=== PATIENT | female | born 1960 | race Caucasian/White ===

== ENCOUNTER 2021-02-17 02:41 | Emergency (ER) | payer SELFPAY ==
[2021-02-17] MEDS ORDERED: OXYMETAZOLINE HCL 100 SPRAYS BOTTLE NAS STA (02:51)
--- NOTE | 2021-02-17 03:11 | ED Physician Documentation ---
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 patient states she always needs nasal packing to get it to resolve. Review of Systems Nose: reports: Epistaxis PD PAST MEDICAL HISTORY - Past Medical History Past Medical History: Yes Cardiovascular: Hypertension, High cholesterol - Past Surgical History Past Surgical History: Yes Ortho: Shoulder arthroplasty, Arthroscopic surgery - Present Medications Home Medications: Ambulatory Orders Medication Instructions Recorded Confirmed Losartan Potassium 25 mg PO DAILY 02/17/21 02/17/21 Warfarin [Coumadin] PO DAILY 02/17/21 - Allergies Allergies/Adverse Reactions: Allergies Allergy/AdvReac Type Severity Reaction Status Date / Time Sulfa (Sulfonamide Allergy Anaphylaxis Verified 02/17/21 02:55 Antibiotics) - Social History Does the pt smoke?: No Smoking Status: Never smoker Does the pt drink ETOH?: Yes Does the pt have substance abuse?: No - Immunizations Immunizations are current?: Yes PD ED PE NORMAL - Vitals Vital signs reviewed: Yes - General General: Alert and oriented X 3, No acute distress, Well developed/nourished - HEENT HEENT: Atraumatic, PERRL, EOMI, Moist mucous membranes, Pharynx benign, Other (R naris active epistaxis, resolving with rhinorocket) Results - Vitals Vitals: Oxygen O2 Source Room air Procedures - Epistaxis Site: Right, Anterior Preparation: Afrin, Clamp / pressure applied Treatment: Packing inserted, Other (bacitracin used as lubricant coating) Other: Observed - no bleeding, Pt tolerated well, O2 sat WNL, Referred to ENT PD MEDICAL DECISION MAKING - ED course ED course: 60yF p/w epistaxis, resolving s/p afrin, direct pressure and then rhinorocket placement in R naris. return precautions given. plan to f/u in 72h for removal. ENT referral provided. Departure - Departure Disposition: 01 Home, Self Care Clinical Impression: Epistaxis Condition: Good Instructions: ED Nosebleed Follow-Up: Rory Hammonds DO [Physician No Access] - Comments: You are seen in the emergency department for nosebleed. Packing was placed in the right nostril that needs to be removed in 72 hours. Please follow up with urgent care, walk in clinic, or come back here. You should also follow up with an ear nose and throat doctor, since this keeps happening. (See referral). Return if you have recurrent bleeding, new or worsening symptoms or other concerns. Discharge Date/Time: 02/17/21 03:59
[2021-02-17 03:35] VITALS: BP 180/96
== END 2021-02-17 03:59 | disposition home or self-care (01) ==
LOC: ED 02:41
DX: R04.0 Epistaxis (principal); Z79.01 Long term (current) use of anticoagulants; I10 Essential (primary) hypertension
CPT/HCPCS: 30901; 99281; 99282; A9270

== ENCOUNTER 2021-02-21 11:17 | Outpatient (CLI) | payer SELFPAY ==
[2021-02-21 20:55] LABS: INR 1.3 (0.8-1.2); PT - PROTHROMBIN TIME 14.5 secs (9.9-12.6)
== END 2021-02-21 23:59 | disposition home or self-care (01) ==
LOC: LAB.N 11:17
PROVIDERS: ATTEND Family Medicine
DX: R04.0 Epistaxis (principal); D68.59 Other primary thrombophilia
CPT/HCPCS: 36415; 85610

== ENCOUNTER 2021-02-21 18:59 | Outpatient (CLI) | payer SELFPAY | END 2021-02-21 19:00 | disposition home or self-care (01) | LOC: LAB.N 18:59 | PROVIDERS: ATTEND Family Medicine | DX: Z53.9 Procedure and treatment not carried out, unspecified reason (principal) ==